=== PATIENT | female | born 1995 | race Caucasian/White ===

== ENCOUNTER 2022-04-21 22:26 | Inpatient (IN) ==
[2022-04-21] MEDS ORDERED: Lactated Ringers 1000 ml BAG 1,000 ML IV ONE (22:39)
[2022-04-21] MEDS ORDERED: Buffered Lidocaine 1% SYRIN 1 ml INTRADERM ONE (22:39)
[2022-04-21] MEDS ORDERED: Lactated Ringers 1000 ml BAG 1,000 ML IV SCH ×2 (23:00→23:45)
[2022-04-22] MEDS ORDERED: Naloxone 0.4 mg VIAL 0.4 mg/ml 1 ml VIAL IV PUSH PRN (01:36)
[2022-04-22] MEDS ORDERED: HYDROmorphone PCA 20 MG/20 ML PCA.SYRING PCA SCH (02:00)
[2022-04-22] MEDS ORDERED: Ondansetron 4 mg VIAL 2 MG/ML 2 ml VIAL IV PRN (02:25)
[2022-04-22] MEDS ORDERED: Glycerin ADULT 2.4 gm SUPP PR PRN (04:12)
[2022-04-22] MEDS ORDERED: Dibucaine 1% OINT 28.35 GM TUBE PR PRN (04:12)
[2022-04-22] MEDS ORDERED: Witch Hazel PAD JAR TOPICAL PRN (04:12)
[2022-04-22] MEDS ORDERED: Oxytocin in LR 20,000 MILLI.UNIT/1,000 ML BAG IV SCH (04:15)
[2022-04-22] MEDS ORDERED: Lactated Ringers 1000 ml BAG 1,000 ML IV SCH (05:00)
[2022-04-22] MEDS ORDERED: Oxytocin 10 UNITS/ML 1 ML VIAL ONE (05:27)
[2022-04-22] MEDS ORDERED: Nicotine PATCH 7 MG/24 HR PATCH TRANSDERM SCH (08:00)
[2022-04-22 09:03] VITALS: BP 108/75
== END 2022-04-22 13:24 | disposition home or self-care (01) | DRG 560 ==
LOC: MCHOBOUT 22:26 → MCHOB 04-22 01:44
PROVIDERS: ADMIT Obstetrics & Gynecology; ATTEND Obstetrics & Gynecology